=== PATIENT | male | born 1970 | race Caucasian/White ===

== ENCOUNTER 2019-04-14 15:47 | Inpatient (IN) | payer OTHER ==
[2019-04-14 20:27] VITALS: BMI 27.5
--- NOTE | 2019-04-14 21:04 | HP ---
CIWA Score - Admission Criteria [facility]ASAS Guidelines: Admission for Medically Managed Detox: Requires at least one of the followin. CIWA greater than 12 2. Seizures within the past 24 hours 3. Delirium tremens within the past 24 hours 4. Hallucinations within the past 24 hours 5. Acute intervention needed for co occurring medical disorder 6. Acute intervention needed for co occurring psychiatric disorder 7. Severe withdrawal that cannot be handled at a lower level of care (continued vomiting, continued diarrhea, abnormal vital signs) requiring intravenous medication and/or fluids 8. Admission ROS S - HPI Chief Complaint: Pt here for cocaine use. Pt on suboxone 49 yo with back pain and knee pain and neck surgery sent here from [facility] for having a urine tox pos for cocaine. Pt is on suboxone, and is on medical marijuana. Pt states he only used cocaine once about 4 days ago, had used cocaine several years ago. Cocaine- rarely used DUR 04/04/19: 8mg/2mg #14 Allergies/Adverse Reactions: Allergies Allergy/AdvReac Type Severity Reaction Status Date / Time No Known Allergies Allergy Verified 04/14/19 20:12 - Ebola screening Have you traveled outside of the country in the last 21 days: No (N) Have you had contact with anyone from an Ebola affected area: No Do you have a fever: No Patient History - Patient Medical History Hx Depression: Yes (anxiety, PTSD) Other Medical History: back pain, knee pain - Patient Surgical History Hx Orthopedic Surgery: Yes (construction accident 2017 knee surgeries, neck surgeries:constructi 2016) - PPD History Documented Results: Negative w/o proof - Smoking Cessation Smoking history: Current every day smoker Have you smoked in the past 12 months: Yes Aproximately how many cigarettes per day: 10 Hx Chewing Tobacco Use: No Initiated information on smoking cessation: Yes 'Breaking Loose' booklet given: 04/14/19 - Substances abused Cocaine Substance route: Inhalation Frequency: 1-3 times last 30 days Amount used: 2 hits Age of first use: 20 Date of last use: 04/10/19 Marijuana/Hashish Substance route: Smoking Frequency: Daily Amount used: 2-4 joints Age of first use: 15 Date of last use: 04/13/19 Family Disease History - Family Disease History Family History: Denies Admission Physical Exam [facility] - Vital Signs Vital Signs: Vital Signs - 24 hr 04/14/19 20:11 Temperature 99.0 F Pulse Rate 79 Respiratory 18 Rate Blood Pressure 130/78 Breathalyzer - Breathalyzer Breathalyzer: 0 Urine Drug Screen - Test Device Lot number: [id number] Expiration date: 01/02/21 - Control Is test valid?: Yes - Results Drug screen NEGATIVE: No Urine drug screen results: THC-Marijuana, BUP-Suboxone Inpatient Rehab Admission - Rehab Decision to Admit Inpatient rehab admission?: Yes - Initial Determination Are CD services needed?: Yes Free of communicable disease: Yes Not in need of hospitalization: Yes - Rehab Admission Criteria Previous failed treatment: Yes Poor recovery environment: Yes Comorbidities: Yes Lacks judgement: Yes Patient is meeting Inpatient Rehab admission criteria:: Yes (sent here from parole)
[2019-04-14] MEDS ORDERED: MENTHOL/PHENOL 1 EACH UD MM PRN (21:08)
[2019-04-14] MEDS ORDERED: MAGNESIUM HYDROX 2400MG/30ML ORAL SUSPENSION 30 ML CUP PO PRN (21:08)
[2019-04-14] MEDS ORDERED: guaiFENesin 200 MG/10 ML 10 ML UNIT-DOSE CUPS PO PRN (21:08)
[2019-04-14] MEDS ORDERED: MAG HYDROX/AL HYDROX/SIMETH 30 ML UNIT-DOSE CUP PO PRN (21:08)
[2019-04-14] MEDS ORDERED: MAGNESIUM CITRATE 300 ML BOTTLE PO PRN (21:08)
[2019-04-14] MEDS ORDERED: hydrOXYzine PAMOATE 25 MG CAPSULE (FP) PO PRN (21:08)
[2019-04-14] MEDS ORDERED: LOPERAMIDE HCL 2 MG CAPSULE PO PRN (21:08)
[2019-04-14] MEDS ORDERED: IBUPROFEN 400 MG TABLET (FP) PO PRN (21:08)
[2019-04-14] MEDS ORDERED: ACETAMINOPHEN 325 MG TABLET (FP) PO PRN (21:08)
[2019-04-14] MEDS ORDERED: NICOTINE POLACRILEX 2 MG GUM BC PRN (21:08)
[2019-04-14] MEDS ORDERED: P-EPHED 60MG/TRIPROLIDI 2.5MG TABLET PO PRN (21:08)
[2019-04-14] MEDS ORDERED: TUBERCULIN PPD 5 TU/0.1ML VIAL ID ONE ×2 (23:25→23:36)
[2019-04-14] MEDS: BUPRENORPHINE/NALOXONE 8 MG/2 MG FILM PACKET SL SCH (23:26)
[2019-04-14] MEDS: THIAMINE HCL 100 MG TABLET (FP) PO SCH (23:27)
[2019-04-15] MEDS: MIRTAZAPINE 15 MG TABLET (FP) PO SCH ×2 (00:07→21:29)
[2019-04-15 09:32] LABS: EPI CELLS 0.5 /HPF (0-5/HPF); HYALINE CASTS 14 /lpf (0-8); URINE APPEARANCE CLOUDY; URINE BACTERIA 76.6 /hpf (NEGATIVE); URINE BILIRUBIN NEGATIVE (NEGATIVE); URINE COLOR YELLOW; URINE GLUCOSE (UA) NEGATIVE (NEGATIVE); URINE KETONE NEGATIVE (NEGATIVE); URINE LEUK ESTERASE NEGATIVE (NEGATIVE); URINE NITRITE NEGATIVE (NEGATIVE); URINE PROTEIN 2+ (NEGATIVE); URINE UROBILINOGEN 0.2 mg/dL (0.2-1.0)
[2019-04-15] MEDS: BUPRENORPHINE/NALOXONE 8 MG/2 MG FILM PACKET SL SCH ×2 (10:28→21:31)
[2019-04-15] MEDS: GABAPENTIN 400 MG CAPSULE (FP) PO SCH ×4 (10:28→21:29)
[2019-04-15] MEDS: PRENATAL VITAMINS W/ FOLIC ACID TABLET (FP) PO SCH (10:28)
[2019-04-15] MEDS: NICOTINE 14 MG/24 HOURS TOPICAL PATCH TD SCH (10:29)
[2019-04-15 10:37] LABS: URINE WBC 4 /hpf (0-5)
[2019-04-15 10:38] LABS: URINE RBC 2 /hpf (0-4)
[2019-04-15 12:12] LABS: HEMATOCRIT 41.6 % (35.4-49); HEMOGLOBIN 13.8 GM/dL (11.7-16.9); MCH 29.9 pg (25.7-33.7); MCHC 33.2 g/dl (32.0-35.9); MEAN CELL VOLUME 89.8 fl (80-96); MEAN PLT VOLUME 8.6 fl (7.5-11.1); RBC 4.63 M/mm3 (4.00-5.60); RDW 12.7 % (11.9-15.9); WHITE BLOOD COUNT 4.1 K/mm3 (4.0-10.0)
[2019-04-15 12:16] LABS: ALBUMIN 3.4 g/dl (3.4-5.0); BILIRUBIN,TOTAL 0.4 mg/dL (0.2-1); CALCIUM 8.5 mg/dL (8.5-10.1); CREATININE 1.1 mg/dL (0.55-1.3); POTASSIUM 3.7 mmol/L (3.5-5.1); TOT PROT 6.2 g/dl (6.4-8.2)
[2019-04-15 12:17] LABS: PLATELET COUNT 176 K/MM3 (134-434)
[2019-04-15] MEDS: THIAMINE HCL 100 MG TABLET (FP) PO SCH (21:29)
--- NOTE | 2019-04-16 08:14 | CONSULT ---
[facility] Psychiatric Consult - Data Date of interview: 04/16/19 Admission source: [place] Identifying data: Mr Dai is a 49 years old single male, father of 3 children, unemployed with no source of income, homeless seeking detox treatment for cocaine and cannabis Substance Abuse History: Reports history of cocaine and cannabis use. Refer to addiction counselor's summary for further information Medical History: Significant for history of knees and neck surgery from injury sustained from a construction accidental. Patient is on suboxone 8/2 mg/bid. Smokes 10 cigarettes daily. Psychiatric History: Patient reports being diagnosed with PTSD in October 2018 while in care home. he was prescribed Remeron. Reports that since his release in February 2019, he has been seeing a psychiatrist at [facility] and he is currently prescribed Remeron 45 mg/hs. Denies previous psychiatric hospitalization or suicidal attempt. At present, reports feeling"disgusted" and sleeping poorly Physical/Sexual Abuse/Trauma History: Denies history of emotional, physical or sexual abuse as well as DV relationship. No service Additional Comment: Reports history of multiple previous arrests including 5 felony convictions, Reports being on parole till 04/29/19 Mental Status Exam - Mental Status Exam Alert and Oriented to: Time, Place, Person Cognitive Function: Fair Patient Appearance: Well Groomed Mood: Depressed, Anxious Affect: Appropriate Patient Behavior: Cooperative Voice Loudness: Normal Thought Process: Intact Thought Disorder: Not Present Hallucinations: Denies Suicidal Ideation: Denies Homicidal Ideation: Denies Insight/Judgement: Poor Sleep: Poorly Appetite: Good Muscle strength/Tone: Normal Gait/Station: Normal Psychiatric Findings - Problem List ([place] 1, 2,3) (1) PTSD (post-traumatic stress disorder) Current Visit: Yes Status: Chronic (2) Substance induced mood disorder Current Visit: Yes Status: Acute (3) Substance-induced sleep disorder Current Visit: Yes Status: Acute (4) Cocaine dependence Current Visit: Yes Status: Acute (5) Cannabis dependence Current Visit: Yes Status: Acute (6) Opioid dependence on agonist therapy Current Visit: Yes Status: Chronic (7) Nicotine dependence Current Visit: Yes Status: Chronic - Initial Treatment Plan Initial Treatment Plan: 1) Continue Remeron 45 mg po HS. 2) Continue inpatient rehabilitation
[2019-04-16] MEDS: PRENATAL VITAMINS W/ FOLIC ACID TABLET (FP) PO SCH (10:01)
[2019-04-16] MEDS: GABAPENTIN 400 MG CAPSULE (FP) PO SCH ×4 (10:01→21:25)
[2019-04-16] MEDS: NICOTINE 14 MG/24 HOURS TOPICAL PATCH TD SCH (10:01)
[2019-04-16] MEDS: BUPRENORPHINE/NALOXONE 8 MG/2 MG FILM PACKET SL SCH ×2 (10:03→21:27)
[2019-04-16] MEDS: THIAMINE HCL 100 MG TABLET (FP) PO SCH (21:25)
[2019-04-16] MEDS: MELATONIN 5 MG TABLETS PO PRN (21:25)
[2019-04-16] MEDS: MIRTAZAPINE 15 MG TABLET (FP) PO SCH (21:25)
[2019-04-17] MEDS: BUPRENORPHINE/NALOXONE 8 MG/2 MG FILM PACKET SL SCH ×2 (10:18→21:35)
[2019-04-17] MEDS: GABAPENTIN 400 MG CAPSULE (FP) PO SCH ×4 (10:19→21:33)
[2019-04-17] MEDS: NICOTINE 14 MG/24 HOURS TOPICAL PATCH TD SCH (10:19)
[2019-04-17] MEDS: PRENATAL VITAMINS W/ FOLIC ACID TABLET (FP) PO SCH (10:19)
[2019-04-17] MEDS: THIAMINE HCL 100 MG TABLET (FP) PO SCH (21:33)
[2019-04-17] MEDS: MIRTAZAPINE 15 MG TABLET (FP) PO SCH (21:33)
[2019-04-17] MEDS: MELATONIN 5 MG TABLETS PO PRN (21:34)
[2019-04-18] MEDS: PRENATAL VITAMINS W/ FOLIC ACID TABLET (FP) PO SCH (10:11)
[2019-04-18] MEDS: GABAPENTIN 400 MG CAPSULE (FP) PO SCH ×4 (10:11→21:26)
[2019-04-18] MEDS: BUPRENORPHINE/NALOXONE 8 MG/2 MG FILM PACKET SL SCH ×2 (10:11→21:29)
[2019-04-18] MEDS: NICOTINE 14 MG/24 HOURS TOPICAL PATCH TD SCH (10:11)
--- NOTE | 2019-04-18 12:06 | PN ---
[facility] Progress Note Note: PT C/O TOOTHACHE ON/OFF FOR PAST "EIGHT YEARS AND TOOTH BROKE AT SOME POINT, WAS TAKEN OUT THEN BUT HAS BEEN HAVING PROBLEM ON SAME LOCATION. REPORTS PLANS TO HAVE IT REPAIRED. Vital Signs - 24 hr 04/18/19 04/18/19 04/18/19 00:30 03:30 06:43 Temperature 98.2 F Pulse Rate 77 Respiratory 18 18 16 Rate Blood Pressure 123/69 Laboratory Tests 04/15/19 04/15/19 04/15/19 08:20 08:20 08:20 WBC 4.1 RBC 4.63 Hgb 13.8 Hct 41.6 MCV 89.8 MCH 29.9 MCHC 33.2 RDW 12.7 Plt Count 176 MPV 8.6 Sodium 144 Potassium 3.7 Chloride 108 H Carbon Dioxide 29 Anion Gap 7 L BUN 16.0 Creatinine 1.1 Est GFR (CKD-EPI)AfAm 91.52 Est GFR (CKD-EPI)NonAf 78.96 Random Glucose 121 H Calcium 8.5 Total Bilirubin 0.4 AST 16 ALT 21 Alkaline Phosphatase 57 Total Protein 6.2 L Albumin 3.4 Urine Color Urine Appearance Urine pH Ur Specific [place] Urine Protein Urine Glucose (UA) Urine Ketones Urine Blood Urine Nitrite Urine Bilirubin Urine Urobilinogen Ur Leukocyte Esterase Urine WBC (Auto) Urine RBC (Auto) Urine Casts (Auto) U Epithel Cells (Auto) U Sm Round Cell (Auto) Urine Bacteria (Auto) RPR Titer Nonreactive 04/15/19 08:44 WBC RBC Hgb Hct MCV MCH MCHC RDW Plt Count MPV Sodium Potassium Chloride Carbon Dioxide Anion Gap BUN Creatinine Est GFR (CKD-EPI)AfAm Est GFR (CKD-EPI)NonAf Random Glucose Calcium Total Bilirubin AST ALT Alkaline Phosphatase Total Protein Albumin Urine Color Yellow Urine Appearance Cloudy Urine pH 6.0 Ur Specific [place] 1.023 Urine Protein 2+ H Urine Glucose (UA) Negative Urine Ketones Negative Urine Blood Negative Urine Nitrite Negative Urine Bilirubin Negative Urine Urobilinogen 0.2 Ur Leukocyte Esterase Negative Urine WBC (Auto) 4 Urine RBC (Auto) 2 Urine Casts (Auto) 14 U Epithel Cells (Auto) 0.5 U Sm Round Cell (Auto) Urine Bacteria (Auto) 76.6 RPR Titer ORAL EXAM:LEFT LOWER MOLAR GUM REDNESS AND SWELLING. A:GINGIVITIS PLAN:AMOXICILLIN 500 MG PO TID X 7 DAYS WARM SALINE RINSE AFTER EACH MEAL.
[2019-04-18] MEDS: AMOXICILLIN 500 MG CAPSULE (FP) PO SCH ×2 (14:29→21:26)
[2019-04-18] MEDS: THIAMINE HCL 100 MG TABLET (FP) PO SCH (21:26)
[2019-04-18] MEDS: MIRTAZAPINE 15 MG TABLET (FP) PO SCH (21:26)
[2019-04-18] MEDS: MELATONIN 5 MG TABLETS PO PRN (21:27)
[2019-04-19] MEDS: AMOXICILLIN 500 MG CAPSULE (FP) PO SCH ×3 (07:39→21:58)
[2019-04-19] MEDS: BUPRENORPHINE/NALOXONE 8 MG/2 MG FILM PACKET SL SCH ×2 (09:58→22:00)
[2019-04-19] MEDS: PRENATAL VITAMINS W/ FOLIC ACID TABLET (FP) PO SCH (09:58)
[2019-04-19] MEDS: GABAPENTIN 400 MG CAPSULE (FP) PO SCH ×4 (09:59→21:57)
[2019-04-19] MEDS: NICOTINE 14 MG/24 HOURS TOPICAL PATCH TD SCH (09:59)
[2019-04-19] MEDS: THIAMINE HCL 100 MG TABLET (FP) PO SCH (21:58)
[2019-04-19] MEDS: MIRTAZAPINE 15 MG TABLET (FP) PO SCH (21:58)
[2019-04-20] MEDS: AMOXICILLIN 500 MG CAPSULE (FP) PO SCH ×3 (06:33→21:33)
[2019-04-20] MEDS: NICOTINE 14 MG/24 HOURS TOPICAL PATCH TD SCH (10:25)
[2019-04-20] MEDS: PRENATAL VITAMINS W/ FOLIC ACID TABLET (FP) PO SCH (10:25)
[2019-04-20] MEDS: GABAPENTIN 400 MG CAPSULE (FP) PO SCH ×4 (10:25→21:33)
[2019-04-20] MEDS: BUPRENORPHINE/NALOXONE 8 MG/2 MG FILM PACKET SL SCH ×2 (10:27→21:35)
[2019-04-20] MEDS: MIRTAZAPINE 15 MG TABLET (FP) PO SCH (21:33)
[2019-04-20] MEDS: MELATONIN 5 MG TABLETS PO PRN (21:34)
[2019-04-20] MEDS: THIAMINE HCL 100 MG TABLET (FP) PO SCH (21:34)
[2019-04-21] MEDS: AMOXICILLIN 500 MG CAPSULE (FP) PO SCH ×3 (07:31→21:18)
[2019-04-21] MEDS: NICOTINE 14 MG/24 HOURS TOPICAL PATCH TD SCH (10:37)
[2019-04-21] MEDS: GABAPENTIN 400 MG CAPSULE (FP) PO SCH ×4 (10:37→21:18)
[2019-04-21] MEDS: PRENATAL VITAMINS W/ FOLIC ACID TABLET (FP) PO SCH (10:37)
[2019-04-21] MEDS: BUPRENORPHINE/NALOXONE 8 MG/2 MG FILM PACKET SL SCH (10:39)
--- NOTE | 2019-04-21 15:35 | PN ---
[facility] Progress Note Note: PT CAME TO [facility] SPECIALIST ANGRY AND THREATENING TO "SNAP" AND REQUESTS TO SEE PSYCH "OTHERWISE WILL SNAP NOW". PT SPECIFICALLY DENIES HE IS HAVING ANY SUICIDAL OR HOMOCIDAL IDEATIONS WHEN ASKED. PT STATES HE CANNOT SLEEP WELL ESPECIALLY WITH STRANGERS IN THE SAME ROOM. PT ALSO STATES HE DOES NOT KNOW WHY HE IS HERE AND SHOULD NOT BE HERE. PT WAS ADMITTED ON 04/14/19 AND MANDATED TO TREATMENT BY PAROLE. Vital Signs - 24 hr 04/21/19 04/21/19 04/21/19 00:30 03:30 07:54 Respiratory 18 18 18 Rate PLAN:PSYCH CONSULT FOR RE-EVAL.
[2019-04-21] MEDS: MIRTAZAPINE 15 MG TABLET (FP) PO SCH (21:18)
[2019-04-21] MEDS: MELATONIN 5 MG TABLETS PO PRN (21:19)
[2019-04-21] MEDS: THIAMINE HCL 100 MG TABLET (FP) PO SCH (21:19)
[2019-04-21] MEDS ORDERED: BUPRENORPHINE/NALOXONE 8 MG/2 MG FILM PACKET SL ONE (22:00)
[2019-04-22] MEDS: AMOXICILLIN 500 MG CAPSULE (FP) PO SCH ×3 (07:17→21:23)
--- NOTE | 2019-04-22 10:14 | PN ---
[facility] Progress Note Note: Asked to see patient after telling [employer] D[employer]ER OPERATOR that he is going to snap because he cannot sleep sharing room with strangers. He was told by senior medical writer that he has to request to speak to administration regarding his request to be alone in a room
[2019-04-22] MEDS: PRENATAL VITAMINS W/ FOLIC ACID TABLET (FP) PO SCH (10:16)
[2019-04-22] MEDS: BUPRENORPHINE/NALOXONE 8 MG/2 MG FILM PACKET SL SCH ×2 (10:16→21:27)
[2019-04-22] MEDS: NICOTINE 14 MG/24 HOURS TOPICAL PATCH TD SCH (10:16)
[2019-04-22] MEDS: GABAPENTIN 400 MG CAPSULE (FP) PO SCH ×4 (10:16→21:24)
[2019-04-22] MEDS ORDERED: TUBERCULIN PPD 5 TU/0.1ML VIAL ID ONE (18:14)
[2019-04-22] MEDS: MELATONIN 5 MG TABLETS PO PRN (21:24)
[2019-04-22] MEDS: MIRTAZAPINE 15 MG TABLET (FP) PO SCH (21:24)
[2019-04-22] MEDS ORDERED: BUPRENORPHINE/NALOXONE 8 MG/2 MG FILM PACKET SL SCH (22:00)
[2019-04-22] MEDS: THIAMINE HCL 100 MG TABLET (FP) PO SCH (22:28)
[2019-04-23] MEDS: AMOXICILLIN 500 MG CAPSULE (FP) PO SCH ×3 (07:34→21:22)
[2019-04-23] MEDS: PRENATAL VITAMINS W/ FOLIC ACID TABLET (FP) PO SCH (10:13)
[2019-04-23] MEDS: GABAPENTIN 400 MG CAPSULE (FP) PO SCH ×4 (10:13→21:22)
[2019-04-23] MEDS: NICOTINE 14 MG/24 HOURS TOPICAL PATCH TD SCH (10:13)
[2019-04-23] MEDS: BUPRENORPHINE/NALOXONE 8 MG/2 MG FILM PACKET SL SCH ×2 (10:15→21:25)
[2019-04-23] MEDS: MELATONIN 5 MG TABLETS PO PRN (21:22)
[2019-04-23] MEDS: MIRTAZAPINE 15 MG TABLET (FP) PO SCH (21:22)
[2019-04-23] MEDS: THIAMINE HCL 100 MG TABLET (FP) PO SCH (21:22)
[2019-04-24] MEDS: AMOXICILLIN 500 MG CAPSULE (FP) PO SCH ×3 (07:23→21:36)
[2019-04-24] MEDS: NICOTINE 14 MG/24 HOURS TOPICAL PATCH TD SCH (10:08)
[2019-04-24] MEDS: PRENATAL VITAMINS W/ FOLIC ACID TABLET (FP) PO SCH (10:08)
[2019-04-24] MEDS: BUPRENORPHINE/NALOXONE 8 MG/2 MG FILM PACKET SL SCH ×2 (10:08→21:36)
[2019-04-24] MEDS: GABAPENTIN 400 MG CAPSULE (FP) PO SCH ×4 (10:08→21:36)
[2019-04-24] MEDS: THIAMINE HCL 100 MG TABLET (FP) PO SCH (21:36)
[2019-04-24] MEDS: MELATONIN 5 MG TABLETS PO PRN (21:36)
[2019-04-24] MEDS: MIRTAZAPINE 15 MG TABLET (FP) PO SCH (21:36)
[2019-04-25] MEDS: AMOXICILLIN 500 MG CAPSULE (FP) PO SCH (06:48)
[2019-04-25] MEDS: NICOTINE 14 MG/24 HOURS TOPICAL PATCH TD SCH (10:17)
[2019-04-25] MEDS: BUPRENORPHINE/NALOXONE 8 MG/2 MG FILM PACKET SL SCH ×2 (10:17→21:31)
[2019-04-25] MEDS: PRENATAL VITAMINS W/ FOLIC ACID TABLET (FP) PO SCH (10:17)
[2019-04-25] MEDS: GABAPENTIN 400 MG CAPSULE (FP) PO SCH ×4 (10:17→21:28)
[2019-04-25] MEDS: MIRTAZAPINE 15 MG TABLET (FP) PO SCH (21:28)
[2019-04-25] MEDS: MELATONIN 5 MG TABLETS PO PRN (21:29)
[2019-04-25] MEDS: THIAMINE HCL 100 MG TABLET (FP) PO SCH (21:29)
[2019-04-26] MEDS: BUPRENORPHINE/NALOXONE 8 MG/2 MG FILM PACKET SL SCH ×2 (10:05→21:24)
[2019-04-26] MEDS: NICOTINE 14 MG/24 HOURS TOPICAL PATCH TD SCH (10:05)
[2019-04-26] MEDS: PRENATAL VITAMINS W/ FOLIC ACID TABLET (FP) PO SCH (10:05)
[2019-04-26] MEDS: GABAPENTIN 400 MG CAPSULE (FP) PO SCH ×4 (10:05→21:24)
[2019-04-26] MEDS: THIAMINE HCL 100 MG TABLET (FP) PO SCH (21:24)
[2019-04-26] MEDS: MIRTAZAPINE 15 MG TABLET (FP) PO SCH (21:24)
[2019-04-26] MEDS: MELATONIN 5 MG TABLETS PO PRN (21:25)
[2019-04-27 09:54] VITALS: PULSE 70
[2019-04-27] MEDS: GABAPENTIN 400 MG CAPSULE (FP) PO SCH ×4 (10:16→21:22)
[2019-04-27] MEDS: NICOTINE 14 MG/24 HOURS TOPICAL PATCH TD SCH (10:16)
[2019-04-27] MEDS: PRENATAL VITAMINS W/ FOLIC ACID TABLET (FP) PO SCH (10:16)
[2019-04-27] MEDS: BUPRENORPHINE/NALOXONE 8 MG/2 MG FILM PACKET SL SCH ×2 (10:18→21:22)
[2019-04-27] MEDS: MIRTAZAPINE 15 MG TABLET (FP) PO SCH (21:22)
[2019-04-27] MEDS: THIAMINE HCL 100 MG TABLET (FP) PO SCH (21:22)
[2019-04-27] MEDS: MELATONIN 5 MG TABLETS PO PRN (21:23)
[2019-04-28 06:27] VITALS: BP 108/76; TEMP 97.9
[2019-04-28] MEDS ORDERED: BUPRENORPHINE/NALOXONE 8 MG/2 MG FILM PACKET SL ONE (09:38)
[2019-04-28] MEDS: PRENATAL VITAMINS W/ FOLIC ACID TABLET (FP) PO SCH (10:13)
--- NOTE | 2019-04-28 10:18 | PN ---
[facility] Progress Note (SOAP) Subjective: PT IS DISCHARGED TODAY PER SCHEDULE. PT MET WITH HIS COUNSELOR AND HAS BEEN REFERRED TO [facility] FOR CD AFTERCARE. PT WILL ALSO CONTINUE SUBOXONE MAT AT [facility]. PT REPORTS HE HAS PRIMARY CARE AT [facility] WITH DR MILLER. ALERT O X 3. DENIES S/H/I. COURTESY RX FOR SUBOXONE 8MG/2MG SL BID ELECTRONICALLY SENT TO PT[facility] FOR [facility]. Objective: 04/28/19 14:21 Vital Signs - 24 hr 04/28/19 04/28/19 04/28/19 00:30 03:30 06:27 Temperature 97.9 F Pulse Rate 70 Respiratory 16 18 18 Rate Blood Pressure 108/76 Laboratory Tests 04/15/19 04/15/19 04/15/19 08:20 08:20 08:20 WBC 4.1 RBC 4.63 Hgb 13.8 Hct 41.6 MCV 89.8 MCH 29.9 MCHC 33.2 RDW 12.7 Plt Count 176 MPV 8.6 Sodium 144 Potassium 3.7 Chloride 108 H Carbon Dioxide 29 Anion Gap 7 L BUN 16.0 Creatinine 1.1 Est GFR (CKD-EPI)AfAm 91.52 Est GFR (CKD-EPI)NonAf 78.96 Random Glucose 121 H Calcium 8.5 Total Bilirubin 0.4 AST 16 ALT 21 Alkaline Phosphatase 57 Total Protein 6.2 L Albumin 3.4 Urine Color Urine Appearance Urine pH Ur Specific [place] Urine Protein Urine Glucose (UA) Urine Ketones Urine Blood Urine Nitrite Urine Bilirubin Urine Urobilinogen Ur Leukocyte Esterase Urine WBC (Auto) Urine RBC (Auto) Urine Casts (Auto) U Epithel Cells (Auto) U Sm Round Cell (Auto) Urine Bacteria (Auto) RPR Titer Nonreactive 04/15/19 08:44 WBC RBC Hgb Hct MCV MCH MCHC RDW Plt Count MPV Sodium Potassium Chloride Carbon Dioxide Anion Gap BUN Creatinine Est GFR (CKD-EPI)AfAm Est GFR (CKD-EPI)NonAf Random Glucose Calcium Total Bilirubin AST ALT Alkaline Phosphatase Total Protein Albumin Urine Color Yellow Urine Appearance Cloudy Urine pH 6.0 Ur Specific [place] 1.023 Urine Protein 2+ H Urine Glucose (UA) Negative Urine Ketones Negative Urine Blood Negative Urine Nitrite Negative Urine Bilirubin Negative Urine Urobilinogen 0.2 Ur Leukocyte Esterase Negative Urine WBC (Auto) 4 Urine RBC (Auto) 2 Urine Casts (Auto) 14 U Epithel Cells (Auto) 0.5 U Sm Round Cell (Auto) Urine Bacteria (Auto) 76.6 RPR Titer Home Medications Medication Instructions Recorded Gabapentin 400 mg PO QID 04/14/19 Buprenorphine/Naloxone [Suboxone 1 each SL BID #14 packet MDD 2 04/28/19 8Mg/2Mg Sl Film -] Mirtazapine [Remeron -] 15 mg PO HS #90 tablet 04/28/19 Assessment: 04/28/19 14:22 NAD MEDICALLY STABLE Plan: FOLLOW UP WITH CD AFTERCARE RECOMMENDED. FOLLOW UP WITH PRIMARY CARE AT [facility] WITHIN 1-2 WEEKS AFTER DISCHARGE
[2019-04-28] MEDS: NICOTINE 14 MG/24 HOURS TOPICAL PATCH TD SCH (10:38)
[2019-04-28] MEDS: GABAPENTIN 400 MG CAPSULE (FP) PO SCH (10:38)
== END 2019-04-28 10:45 | disposition home or self-care (01) | DRG 772 ==
LOC: YASAS 15:47 → Y5N 22:12
PROVIDERS: ADMIT Neuromusculoskeletal Medicine & OMM; ATTEND Neuromusculoskeletal Medicine & OMM
PROC: HZ42ZZZ Group Counseling for Substance Abuse Treatment, Cognitive-Behavioral (ICD-10-PCS; principal; 2019-04-14)
DX: F14.20 Cocaine dependence, uncomplicated (principal); F11.20 Opioid dependence, uncomplicated; F12.20 Cannabis dependence, uncomplicated; F17.210 Nicotine dependence, cigarettes, uncomplicated; F19.24 Other psychoactive substance dependence with psychoactive substance-induced mood disorder; F19.282 Other psychoactive substance dependence with psychoactive substance-induced sleep disorder; F43.10 Post-traumatic stress disorder, unspecified; F41.9 Anxiety disorder, unspecified; K05.10 Chronic gingivitis, plaque induced; Z59.0 Homelessness
CPT/HCPCS: 36415; 80053; 81003; 85027; 86593